=== PATIENT | male | born 1995 | race Caucasian/White ===

== ENCOUNTER 2018-09-18 06:00 | Emergency (ER) | payer OTHER ==
[~2018-09-18] VITALS: Ht 167.6 cm; Wt 68.0 kg
[2018-09-18 06:05] VITALS: BP 145/68
[2018-09-18] MEDS ORDERED: ONDANSETRON 4 MG TAB.RAPDIS ONE (06:47)
[2018-09-18] MEDS ORDERED: ONDANSETRON 4 MG TAB.RAPDIS PO ONE (07:00)
== END 2018-09-18 06:52 | disposition home or self-care (01) ==
LOC: ER 06:07
DX: J95.830 Postprocedural hemorrhage of a respiratory system organ or structure following a respiratory system procedure (principal); Z90.89 Acquired absence of other organs
CPT/HCPCS: 99282; A4606; Q0162; Z7610